=== PATIENT | male | born 1990 ===

== ENCOUNTER 2023-10-20 17:06 | Emergency (ER) | payer MEDICAID, SELFPAY ==
[2023-10-20 17:17] VITALS: BP 150/97; PULSE 122; RESP 24; O2SAT 97
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
[2023-10-20 17:48] LABS: HCT 39.4 % (40.0-50.0); HGB 13.6 g/dL (13.5-17.5); MCH 30.4 pg (27.0-33.0); MCHC 34.5 % (32.0-36.0); MCV 88 fL (80-95); MPV 12.1 fL (8.0-11.0); Platelet Count 177 10^3/uL (130-400); RBC 4.48 10^6/uL (4.36-5.78); RDW 12.6 % (11.8-14.1); RDW-SD 40.4 fL; WBC 16.26 10^3/uL (4.4-10.8)
--- NOTE | 2023-10-20 17:59 | NUR.NOTE ---
Nursing Note: [id number] patient trying to bite wrist restraints off arms Security and DISTANCE LEARNING PROGRAM COORDINATOR assisted in checking restraints
[2023-10-20 18:07] LABS: Absolute Neutrophil Count 13.33 10^3/uL (1.2-6.7); Bands % 1
[2023-10-20 18:08] LABS: Absolute Lymphocyte Count 1.46 10^3/uL (1.2-3.4); Absolute Monocyte Count 1.46 10^3/uL (0.1-0.8); Atypical Lymphocytes % 2; Diff Comment Manual Differential; RBC Morphology Normal
[2023-10-20] MEDS: Haloperidol 5 MG/ML VIAL IM (18:08)
[2023-10-20] MEDS: LORazepam 2 MG/ML VIAL IM (18:09)
[2023-10-20] MEDS: diphenhydrAMINE 50 MG/ML VIAL 25 MG IM (18:09)
[2023-10-20 18:14] LABS: Salicylate < 2.8 mg/dL (<2.8)
[2023-10-20 18:17] LABS: Acetaminophen < 2 ug/mL (10-30)
[2023-10-20 18:18] LABS: ALT 123 U/L (16-63); AST 165 U/L (15-37); Albumin 4.6 g/dL (3.4-5.0); Alkaline Phosphatase 74 U/L (46-116); Anion Gap 17.6 mmol/L (3-11); BUN 22 mg/dL (7-18); Bilirubin, Total 1.3 mg/dL (0.2-1.0); CO2 25.4 mmol/L (21.0-32.0); CREATININE 1.3 mg/dL (0.70-1.30); Calcium 9.8 mg/dL (8.5-10.1); Chloride 95 mmol/L (98-107); Estimated GFR 73.93 (mL/min/1.73m2); Glucose 103 mg/dL (74-106); Magnesium 2.6 mg/dL (1.8-2.4); Potassium 3.6 mmol/L (3.5-5.1); Sodium 138 mmol/L (136-145); Total Protein 7.9 g/dL (6.4-8.2)
[2023-10-20 18:19] LABS: ETHANOL BLOOD < 3.0 mg/dL (<10)
--- NOTE | 2023-10-20 18:26 | NUR.NOTE ---
Nursing Note: Patient moving hands and feet to music playing this RN asked him how he was doing patient stated I'm freezing my balls off but you are just going to let me lay here and suffer this RN assisted patient by putting a warm blanket on patient. Hands and feet w/ restraint still visualized
--- NOTE | 2023-10-20 21:30 | NUR.NOTE ---
gave this nurse person to remove one of the lower restraint. Left leg restraint removed at this time.
[2023-10-20 21:41] VITALS: RESP 24
[2023-10-20 22:41] VITALS: RESP 24
[2023-10-20 23:30] VITALS: BP 117/69; PULSE 122; RESP 18; TEMP 36.7; O2SAT 97
[2023-10-21 08:10] VITALS: BP 119/60; PULSE 109; TEMP 36.6; O2SAT 97
--- NOTE | 2023-10-21 10:36 | CMSP_ITS ---
Care Management Safety Plan Status Status: Involuntary Reason for Wait Reason for Wait: Inpatient Admission and Assessment/Screening Safety Plan Safety Plan: INVOLUNTARY FOR INPATIENT PSYCHIATRIC STABILIZATION.? Awaiting 2nd Certification, scheduled for 1100 per LINDA Rodrigez at [facility]. SAFETY PLAN: 1. Will remain on suicide precautions, in paper clothes 2. Will remain in Zone B under direct supervision of one-on-one staff at all times provided by [employer]; ESHA, PLASTICS FABRICATOR OR WELDER drapery operator. 3. May have paper cups, plates, finger foods as well as a cardboard spoon with which to eat meals. 4. Follow [facility] Management of the Admitted Behavioral Health Patient policy. 5. Shower available in Zone B without restriction. 6. Personal belongings-soft items permitted at RN discretion. 7. Visitors-none at this time. 8. Activities: soft cart items approved per RN discretion. 9.? Bathroom available in Zone B without restriction. 10. Phone: limited to [facility] cordless phone at RN discretion. Due to INVOLUNTARY status, patient is being held at [facility] by the Department of Mental Health ([facility]) until 2nd certification by [facility] Psychiatrist can be performed (within 24 hours). Staff will provide de-escalation support (CPI) as needed. If patient wishes to leave [facility], staff will contact [facility] Crisis Screener ([phone]) and [employer] ([phone]) as soon as possible. In the event of elopement, notify [place] State [employer] ([phone]). Patient is currently involuntarily at [facility]. [facility] Frontline Beater Room Supervisor will continue seeking placement. Please contact the [employer] for any needed changes to Safety Plan. Safety plan has been provided to interdepartmental care team. Patient will be transported by [employer] at time of discharge.
--- NOTE | 2023-10-21 10:36 | PDOC.CMSAFE ---
Care Management Safety Plan Status Status: Involuntary Reason for Wait Reason for Wait: Inpatient Admission and Assessment/Screening Safety Plan Safety Plan: INVOLUNTARY FOR INPATIENT PSYCHIATRIC STABILIZATION.? Awaiting 2nd Certification, scheduled for 1100 per LINDA Rodrigez at [facility]. SAFETY PLAN: 1. Will remain on suicide precautions, in paper clothes 2. Will remain in Zone B under direct supervision of one-on-one staff at all times provided by [employer]; ESHA, BUSINESS LAW TEACHER platform material handler manager. 3. May have paper cups, plates, finger foods as well as a cardboard spoon with which to eat meals. 4. Follow [facility] Management of the Admitted Behavioral Health Patient policy. 5. Shower available in Zone B without restriction. 6. Personal belongings-soft items permitted at RN discretion. 7. Visitors-none at this time. 8. Activities: soft cart items approved per RN discretion. 9.? Bathroom available in Zone B without restriction. 10. Phone: limited to [facility] cordless phone at RN discretion. Due to INVOLUNTARY status, patient is being held at [facility] by the Department of Mental Health ([facility]) until 2nd certification by [facility] Psychiatrist can be performed (within 24 hours). Staff will provide de-escalation support (CPI) as needed. If patient wishes to leave [facility], staff will contact [facility] Crisis Screener ([phone]) and Program Rep ([phone]) as soon as possible. In the event of elopement, notify [place] [employer] ([phone]). Patient is currently involuntarily at [facility]. [facility] Frontline Piano Sounding Board Matcher will continue seeking placement. Please contact the Program Rep for any needed changes to Safety Plan. Safety plan has been provided to interdepartmental care team. Patient will be transported by [employer] at time of discharge.
[2023-10-21 11:29] LABS: Bilirubin Moderate (Negative); Blood Negative (Negative); Clarity Clear (Clear); Glucose Negative (Negative); Ketones 80 mg/dL (Negative); Leukocyte Esterase Negative (Negative); Nitrite Negative (Negative); Specific Gravity 1.025 (1.005-1.025); Urobilinogen 0.2 mg/dL (Up to 0.2)
[2023-10-21 11:36] LABS: Bacteria Negative HPF (Negative); C & S Indicated? No; Casts Negative LPF (Negative); Crystals Negative HPF (Negative); Epithelial Cells Rare HPF (Negative); Mucus Trace (Negative); RBC 0-2 HPF (0-2); WBC 0-2 HPF (0-5)
[2023-10-21 11:44] LABS: *AMPHETAMINES SCREEN URINE Negative (Negative); *BARBITURATES SCREEN URINE Negative (Negative); *BENZODIAZEPINES SCREEN URINE Negative (Negative); Cannabinoids THC Positive (Negative); Cocaine Screen,Urine Negative (Negative); METHADONE URINE SCREEN Negative (Negative); OPIATES URINE SCREEN Negative (Negative); Tricyclic Antidepressants Negative (Negative)
--- NOTE | 2023-10-21 17:13 | ED.PROG_ITS ---
Date of service: 10/21/23 Time of Service: 22:31 Medical Decision Making The patient is standing at the nurses station staring in the window at the providers. He asked how long we were going to hold him against his will. He was quite manic, grandiose, and hypersexual yesterday. I have called the crisis people twice today to ask if psychiatry had any recommendations for medications for him. I did have to sedate him last night because of the shravan, had not slept for 8 or 9 days, and began chewing through restraints. He evidently had been fighting and uncooperative with the state police prior to them bringing him in (explaining all his bruises). Quality:[facility] Health Related Social Needs: No Data to Display Sign Out Sign Out Data: Sign Out Comment: This 33-year-old male patient with a history of bipolar illness arrives in state police custody floridly manic. The patient was removed from the [facility] by [facility] yesterday after being loud and [id number]. Earlier today the patient was taken to court where there was supposed to be a court mandated psychiatric evaluation. The ladder somehow slipped through the cracks and the patient was released. He was picked up again by the state police and the embedded crisis person Hyacinth spent several hours with him. He was fighting with police and reportedly took out a chainsaw and threatened to kill them. Crisis arrived with the patient and police and tell me that the patient was being EEG. He is floridly manic and grandiose. He began chewing on his hand restraints in the psychiatric unit. He received a B-52 in an effort to get him calm and sleeping as he says he has not slept in 8 or 9 days. He has just moved up here from the [facility] in [facility]. He was reportedly buying a house but the seller's backed out. His mom reportedly wrote a witness affidavit about his bizarre behavior. He is very unkept and appears unable to keep up with ADLs. The patient has not expressed any suicidal thoughts. Last updated by Sun Hobson MD at 10/20/23 23:15 Sign Out Comment: This 33-year-old male patient with a history of bipolar illness arrives in state police custody floridly manic. The patient was removed from the [facility] by [employer] yesterday after being loud and [id number]. Earlier today the patient was taken to court where there was supposed to be a court mandated psychiatric evaluation. The ladder somehow slipped through the cracks and the patient was released. He was picked up again by the state police and the embedded crisis person Hyacinth spent several hours with him. He was fighting with police and reportedly took out a chainsaw and threatened to kill them. Crisis arrived with the patient and police and tell me that the patient was being EEG. He is floridly manic and grandiose. He began chewing on his hand restraints in the psychiatric unit. He received a B-52 last night in an effort to get him calm and sleeping as he says he has not slept in 8 or 9 days. He has just moved up here from the [facility] in [facility]. He was reportedly buying a house but the seller's backed out. His mom reportedly wrote a witness affidavit about his bizarre behavior. He is very unkept and appears unable to keep up with ADLs. The patient has not expressed any suicidal thoughts. Patient took a shower today and has been redirectable. He asked how long we are to hold him against as well and it was explained to him that he has been EE and we are allowed to do this by state law. Did speak with crisis and psychiatry today and is awaiting placement. Did call them to see if they had any medication recommendations and they said to use my judgment. Last updated by Sun Hobson MD at 10/21/23 22:26 Discharge Plan Discharge Details Chief Complaint: PsychEval Primary Care Provider: Unknown,Unknown ED Provider: Sun Hobson
--- NOTE | 2023-10-22 07:25 | ED.PROG_ITS ---
Date of service: 10/22/23 Time of Service: 07:25 Medical Decision Making Patient signed out to me pending involuntary placement for shravan, reportedly has a history of bipolar per signout. No issues over prior shift, currently resting in bed no acute complaints. Will continue to monitor until safe disposition found Quality:[facility] Health Related Social Needs: No Data to Display Sign Out Sign Out Data: Sign Out Comment: This 33-year-old male patient with a history of bipolar illness arrives in state police custody floridly manic. The patient was removed from the [facility] by [employer] yesterday after being loud and [id number]. Earlier today the patient was taken to court where there was supposed to be a court mandated psychiatric evaluation. The ladder somehow slipped through the cracks and the patient was released. He was picked up again by the state police and the embedded crisis person Hyacinth spent several hours with him. He was fighting with police and reportedly took out a chainsaw and threatened to kill them. Crisis arrived with the patient and police and tell me that the patient was being EEG. He is floridly manic and grandiose. He began chewing on his hand restraints in the psychiatric unit. He received a B-52 in an effort to get him calm and sleeping as he says he has not slept in 8 or 9 days. He has just moved up here from the [facility] in [facility]. He was reportedly buying a house but the seller's backed out. His mom reportedly wrote a witness affidavit about his bizarre behavior. He is very unkept and appears unable to keep up with ADLs. The patient has not expressed any suicidal thoughts. Last updated by Sun Hobson MD at 10/20/23 23:15 Sign Out Comment: This 33-year-old male patient with a history of bipolar illness arrives in state police custody floridly manic. The patient was removed from the [facility] by [employer] yesterday after being loud and [id number]. Earlier today the patient was taken to court where there was supposed to be a court mandated psychiatric evaluation. The ladder somehow slipped through the cracks and the patient was released. He was picked up again by the state police and the embedded crisis person Hyacinth spent several hours with him. He was fighting with police and reportedly took out a chainsaw and threatened to kill them. Crisis arrived with the patient and police and tell me that the patient was being EEG. He is floridly manic and grandiose. He began chewing on his hand restraints in the psychiatric unit. He received a B-52 last night in an effort to get him calm and sleeping as he says he has not slept in 8 or 9 days. He has just moved up here from the [facility] in [facility]. He was reportedly buying a house but the seller's backed out. His mom reportedly wrote a witness affidavit about his bizarre behavior. He is very unkept and appears unable to keep up with ADLs. The patient has not expressed any suicidal thoughts. Patient took a shower today and has been redirectable. He asked how long we are to hold him against as well and it was explained to him that he has been EE and we are allowed to do this by state law. Did speak with crisis and psychiatry today and is awaiting placement. Did call them to see if they had any medication recommendations and they said to use my judgment. Last updated by Sun Hobson MD at 10/21/23 22:26 Discharge Plan Discharge Details Chief Complaint: PsychEval Primary Care Provider: Unknown,Unknown ED Provider: Db Robin
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
--- NOTE | 2023-10-22 11:29 | MHPN_ITS ---
Date of service: 10/21/23 Time of Service: 19:11 Mental Health Emergency Note Release [facility] release signed:: No Reason for Visit Andrés is currently on an involuntary hold at [facility] due to his recent concerning behaviors. Andrés is being seen on Zoom by this comic book writer to complete his second daily assessment by [facility]. In the last 2 weeks has the pt presented for ES prior to today?: Unknown Client Information Client is: New Well Housed: No,status: Not homeless, Unstable housing Non Suicidal Self Injury Current: No History: No Safety Risk/Harm to Self or Others Current Ideation to Harm Self or Others: No Risk: Does risk to harm exist?: yes. Access to means: No. Risk: Moderate Risk Duty to warn indicated: No Asssessment/Mental Status Appearance: Unremarkable Attitude: Cooperative Behavior: Unremarkable Speech: Normal Affect: Cogruent with mood Mood: Stressed Thought process: Goal directed Hallucinations: No evidence Delusions: No evidence Attention: Unremarkable Perception: Not impaired Orientation: Fully orientated Memory: Intact Insight: Poor Judgement: Poor Neurovegetative Symptoms Sleep: Decrease Appetitie: No change Interests: No change Energy: No change Libido: Not applicable Substance Use: Do you use nicotine?: No Have you used substances in the last 7 days?: No Additional Issues: Assaultive/Threatening Behavior: No Medical Concerns: No Client engaged in active self harm w/weapon: No Threatening to run away: No Child reported abuse/neglect: No Voluntarily presenting for services: No Domestic violence is a concern: No Extreme Psychosis or extreme behavior is present: Yes Impression Andrés is currently at [facility] on an involuntary hold due to his concerning behaviors. Andrés presents to this comic book writer sitting in his hospital bed in paper scrubs via Zoom. Andrés reports he is good, he has been resting, drawing, and listening to music. Andrés showed this comic book writer the drawings he has been working on. Andrés begins to tilt the tablet the Zoom is on and reports he is just tightening a bolt for us. Andrés reports he would never hurt himself or someone else and wishes he could just go back to his hotel room. Andrés reports he is buying a house in [place] on the of the month and is very excited. Andrés reports the [place] is going to help him buy this home. Andrés reports being excited for his new life but sad that he will no longer be able to see the children who called him dad. Andrés reports his soon to be ex- has two children who referred to him as dad but they are getting a divorce after being together for four years. Andrés reports he only stayed in this relationship for the kids.? Andrés reports he served in the [employer] for 3.5 years and had an awesome time doing so. Andrés presents proud to be a . Andrés picked up the music tablet in his room and asked this comic book writer for her favorite song so he could play it, this comic book writer reported she did not really have one and continued to ask assessment questions. Andrés then asked this comic book writer Can we go for a walk so I can hold your hand This comic book writer stated no and continued with the assessment. Once the assessment was completed this comic book writer asked if Andrés had any questions, which he did not. This comic book writer was telling Andrés she was going to end the call and Andrés stated okay, much love you beautiful girl. Andrés presents as a client in need of treatment and will continue to be held on an EE until placement is found Plan/Disposition Recommended Disposition: Hospitalization (No beds available at this time) facilities contacted. Plan: Andrés will remain at [facility] until an inpatient placement can be secured. Person reported agreement to plan: No Reports/communication Outcome discussed with: ED/Personnel
--- NOTE | 2023-10-22 11:32 | MHPN_ITS ---
Date of service: 10/22/23 Time of Service: 09:50 Mental Health Emergency Note Release [facility] release signed:: No Reason for Visit Andrés is currently on an involuntary hold at [facility] due to his recent concerning behaviors. Andrés is being seen on Zoom by this comic book writer to complete his first daily assessment by [facility]. In the last 2 weeks has the pt presented for ES prior to today?: Unknown Client Information Client is: New Well Housed: No,status: Not homeless, Unstable housing Non Suicidal Self Injury Current: No History: No Safety Risk/Harm to Self or Others Current Ideation to Harm Self or Others: No Risk: Does risk to harm exist?: yes. Access to means: No. Risk: Low Risk Duty to warn indicated: No Asssessment/Mental Status Appearance: Disheveled Attitude: Cooperative Behavior: Unremarkable Speech: Normal Affect: Cogruent with mood Mood: Stressed Thought process: Goal directed Hallucinations: No evidence Delusions: No evidence Attention: Unremarkable Perception: Not impaired Orientation: Fully orientated Memory: Intact Insight: Poor Judgement: Poor Neurovegetative Symptoms Sleep: No change Appetitie: No change Interests: No change Energy: No change Libido: Not applicable Substance Use: Do you use nicotine?: No Have you used substances in the last 7 days?: No Additional Issues: Assaultive/Threatening Behavior: No Medical Concerns: No Client engaged in active self harm w/weapon: No Threatening to run away: No Child reported abuse/neglect: No Voluntarily presenting for services: No Domestic violence is a concern: No Extreme Psychosis or extreme behavior is present: No Impression Andrés presents to this comic book writer as alert and oriented as well as calm and container coordinator perative. Andrés shows this comic book writer his drawings on the chalkboard both in his room and in the [address] in addition to showing me all the activities he has been doing since being at the hospital. Andrés reports he is doing excellent this morning, he went for a jog and then almost passed out.. Andrés could not clarify more; it should be noted Andrés did not leave [place]. Andrés reports he is spending a lot of time singing, listening to music, and watching TV. andrés reports that he likes that the hospital is letting him use a tablet, but he is surprised because per his report he knows how to make a bomb with one from the [employer]. This comic book writer asked Andrés for his social security number to assist in getting him placed he provided that and then quickly rambled off his phone number, email address, and [facility] to this comic book writer and reported call me when I am out of here. Andrés ended the Zoom by blowing kisses. Andrés remains a client in need of treatment. Plan/Disposition Recommended Disposition: Hospitalization (no beds available) facilities contacted. Plan: Andrés is at [facility] waiting for involuntary treatment. Person reported agreement to plan: No Reports/communication Outcome discussed with: ED/Personnel
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
== END 2023-10-22 16:57 ==
PROVIDERS: Emergency Medicine; Emergency Provider Emergency Medicine; PCP Internal Medicine Hematology & Oncology
DX: F30.9 Manic episode, unspecified (principal); F17.200 Nicotine dependence, unspecified, uncomplicated; Z78.1 Physical restraint status
CPT/HCPCS: 123; 80053; 80307; 96372; 99285; 00123; 80320; 80329; 81003; 81015; 83735; 85025; J1200; J1630; J2060